=== PATIENT | male | born 1940 | race Caucasian/White ===

== ENCOUNTER 2023-05-17 05:58 | Day surgery (SDC) | payer MEDICARE ==
[~2023-05-17] VITALS: Ht 180.3 cm; Wt 97.3 kg
[2023-05-17] MEDS ORDERED: cefazolin 2gm/D5W 100mL 100 ML IV ONE (06:25)
[2023-05-17] MEDS ORDERED: vancomycin 1,500 MG in NS 300ml IV soln IV ONE (06:30)
[2023-05-18] MEDS ORDERED: cefazolin 2gm/D5W 100mL 100 ML IV ONE (05:30)
[2023-05-18] MEDS ORDERED: vancomycin 1,500 MG in NS 300ml IV soln IV ONE (05:30)
[2023-05-18] MEDS ORDERED: FLO0.4C PO (05:42)
[2023-05-18] MEDS ORDERED: AMLO2.5T4 PO (05:43)
[2023-05-18] MEDS ORDERED: FURO40TA4 PO (05:43)
[2023-05-18] MEDS ORDERED: METF-1203 PO (05:43)
[2023-05-18] MEDS ORDERED: HYDR25TA5 PO (05:43)
[2023-05-18] MEDS ORDERED: POTA8CAP20 PO (05:43)
[2023-05-18] MEDS ORDERED: LISI20TA28 PO (05:43)
[2023-05-18] MEDS ORDERED: APIX5TAB3 PO (05:43)
[2023-05-18] MEDS ORDERED: GLIP-192 PO (05:43)
== END 2023-05-17 06:40 | disposition home or self-care (01) ==
LOC: SSTAY O 05:58
PROVIDERS: ATTEND Internal Medicine Cardiovascular Disease
DX: I49.5 Sick sinus syndrome (principal); Z53.8 Procedure and treatment not carried out for other reasons; I42.0 Dilated cardiomyopathy; I48.0 Paroxysmal atrial fibrillation; I44.7 Left bundle-branch block, unspecified; I10 Essential (primary) hypertension; E11.9 Type 2 diabetes mellitus without complications; I71.40 Abdominal aortic aneurysm, without rupture, unspecified; Z79.01 Long term (current) use of anticoagulants; Z79.84 Long term (current) use of oral hypoglycemic drugs; Z79.899 Other long term (current) drug therapy; Z85.038 Personal history of other malignant neoplasm of large intestine; Z90.49 Acquired absence of other specified parts of digestive tract; Z98.890 Other specified postprocedural states; Z82.3 Family history of stroke; Z83.3 Family history of diabetes mellitus
CPT/HCPCS: 85610; J7030

== ENCOUNTER → 2023-05-18 | Day surgery (SDC) | payer MEDICARE ==
[~2023-05-18] VITALS: Ht 180.3 cm; Wt 96.5 kg
[2023-05-18] VITALS (7 sets, daily range): BP systolic 145–164; BP diastolic 72–88; PULSE 49–67; RESP 13–21; TEMP 97.8; O2SAT 92–98
[~2023-05-18] MED LIST: AMLO2.5T4 PO; APIX5TAB3 PO; FLO0.4C PO; FURO40TA4 PO; GLIP-192 PO; HYDR25TA5 PO; HYDROcodone/acetaminophen 10/325mg tab PO PRN; HYDROcodone/acetaminophen 5mg/325mg tablet PO PRN; LIDOCAINE 2%/EPI 1:100,000 inj. Multi-dose 20 ML VIAL ONE; LISI20TA28 PO; METF-1203 PO; POTA8CAP20 PO; VANCOMYCIN 1,500MG in NS 300 ML IVPB IV ONE; ceFAZolin 2,000MG in D5W 100mL IV ONE; fentaNYL/PF 50MCG/1 ML 2ML syringe ONE; iohexol 350 MG/ML 50ML vial IV ONE; midazolam 1 mg/ML 2ml injection ONE; normal saline 1000ml 1,000 ML IV PRN; normal saline 1000ml 1,000 ML IV SCH; vancomycin 1,000mg inj ONE
[2023-05-18 06:06] LABS: ALBUMIN 3.8 G/DL (3.4-5.0); ANION GAP 10 (8-16); BLOOD UREA NITROGEN 17 MG/DL (7-18); BUN/CREATININE RATIO 13.2 (10.0-20.0); CALCIUM 9.4 MG/DL (8.5-10.1); CHLORIDE 103 MMOL/L (99-107); CREATININE 1.29 MG/DL (0.60-1.10); GLUCOSE 187 MG/DL (70-104); MAGNESIUM 1.7 MG/DL (1.5-2.4); POTASSIUM 3.7 MMOL/L (3.5-5.1); SODIUM 144 MMOL/L (135-145); TOTAL CARBON DIOXIDE 31.1 MMOL/L (24-32); eCRCL 47 ML/MIN; eGFR 53 ML/MIN
[2023-05-18 06:09] LABS: APTT 27 SECONDS (22-32); PROTHROMBIN TIME 10.9 SECONDS (9.0-12.0)
[2023-05-18 06:24] LABS: BASOPHILS # (AUTO) 0.1 X10'3 (0-0.2); BASOPHILS % (AUTO) 0.9 % (0-1); EOSINOPHILS # (AUTO) 0.2 X10'3 (0-0.9); EOSINOPHILS % (AUTO) 2.8 % (0-6); HEMATOCRIT 42.4 % (42.0-52.0); HEMOGLOBIN 14.3 g/dl (14.0-17.9); LYMPHOCYTES # (AUTO) 1.9 X10'3 (1.1-4.8); LYMPHOCYTES % (AUTO) 24.7 % (21-51); MEAN CORPUSCULAR HEMOGLOBIN 32.4 PG (27.0-31.0); MEAN CORPUSCULAR HGB CONC 33.7 g/dL (33.0-36.5); MEAN CORPUSCULAR VOLUME 96.2 FL (78-98); MEAN PLATELET VOLUME 10.2 FL (7.4-10.4); MONOCYTES # (AUTO) 0.8 X10'3 (0-0.9); MONOCYTES % (AUTO) 10.6 % (2-12); NEUTROPHILS # (AUTO) 4.8 X10'3 (1.8-7.7); PLATELET COUNT 216 X10'3 (140-440); RED BLOOD COUNT 4.41 X10'6 (4.70-6.10); RED CELL DISTRIBUTION WIDTH 14.5 % (11.5-14.5); WHITE BLOOD COUNT 7.8 X10'3 (4.5-11.0)
== END | disposition home or self-care (01) ==
LOC: SSTAY O 05:07
PROVIDERS: ATTEND Internal Medicine Cardiovascular Disease
DX: I42.0 Dilated cardiomyopathy (principal); I11.0 Hypertensive heart disease with heart failure; I50.22 Chronic systolic (congestive) heart failure; I49.5 Sick sinus syndrome; I48.0 Paroxysmal atrial fibrillation; I44.7 Left bundle-branch block, unspecified; I71.40 Abdominal aortic aneurysm, without rupture, unspecified; E11.9 Type 2 diabetes mellitus without complications; Z79.84 Long term (current) use of oral hypoglycemic drugs; Z79.01 Long term (current) use of anticoagulants; Z79.899 Other long term (current) drug therapy; Z85.038 Personal history of other malignant neoplasm of large intestine; Z98.890 Other specified postprocedural states; Z90.49 Acquired absence of other specified parts of digestive tract; Z82.3 Family history of stroke; Z83.3 Family history of diabetes mellitus
CPT/HCPCS: 33225; 33249; 36415; 71045; 80048; 82948; 83735; 85025; 85610; 85730; 93005; 99152; 99153; C1769; C1882; C1895; C1898; C1900; J2250; J3010; J3370; J7030; J7040; Q9967; A4565

== ENCOUNTER 2023-10-04 06:04 | Day surgery (SDC) | payer MEDICARE ==
[~2023-10-04] VITALS: Ht 180.3 cm; Wt 91.8 kg
[2023-10-04] VITALS (8 sets, daily range): BP systolic 141–180; BP diastolic 73–85; PULSE 60–64; RESP 12–16; TEMP 97.6; O2SAT 96–100
[~2023-10-04 06:04] MED LIST changes: -HYDROcodone/acetaminophen 10/325mg tab PO PRN; -HYDROcodone/acetaminophen 5mg/325mg tablet PO PRN; -LIDOCAINE 2%/EPI 1:100,000 inj. Multi-dose 20 ML VIAL ONE; -VANCOMYCIN 1,500MG in NS 300 ML IVPB IV ONE; -ceFAZolin 2,000MG in D5W 100mL IV ONE; -fentaNYL/PF 50MCG/1 ML 2ML syringe ONE; -iohexol 350 MG/ML 50ML vial IV ONE; -midazolam 1 mg/ML 2ml injection ONE; -normal saline 1000ml 1,000 ML IV PRN; -normal saline 1000ml 1,000 ML IV SCH; -vancomycin 1,000mg inj ONE
[2023-10-04] MEDS ORDERED: CARV25TA2 PO (06:30)
[2023-10-04] MEDS ORDERED: AMI200T PO (06:30)
[2023-10-04 07:35] LABS: INR 1.1 INR; PROTHROMBIN TIME 11.3 SECONDS (9.0-12.0)
[2023-10-04 07:37] LABS: ALBUMIN 3.2 G/DL (3.4-5.0); ANION GAP 5 (8-16); BLOOD UREA NITROGEN 25 MG/DL (7-18); BUN/CREATININE RATIO 18.1 (10.0-20.0); CALCIUM 8.5 MG/DL (8.5-10.1); CHLORIDE 104 MMOL/L (99-107); CREATININE 1.38 MG/DL (0.60-1.10); GLUCOSE 171 MG/DL (70-104); MAGNESIUM 1.5 MG/DL (1.5-2.4); POTASSIUM 4.4 MMOL/L (3.5-5.1); SODIUM 141 MMOL/L (135-145); eCRCL 44 ML/MIN; eGFR 49 ML/MIN
[2023-10-04 07:40] LABS: BASOPHILS # (AUTO) 0.1 X10'3 (0-0.2); BASOPHILS % (AUTO) 1.2 % (0-1); EOSINOPHILS # (AUTO) 0.2 X10'3 (0-0.9); EOSINOPHILS % (AUTO) 3.9 % (0-6); HEMATOCRIT 36.5 % (42.0-52.0); HEMOGLOBIN 12.1 g/dl (14.0-17.9); LYMPHOCYTES # (AUTO) 1.4 X10'3 (1.1-4.8); LYMPHOCYTES % (AUTO) 22.5 % (21-51); MEAN CORPUSCULAR HEMOGLOBIN 30.8 PG (27.0-31.0); MEAN CORPUSCULAR HGB CONC 33.2 g/dL (33.0-36.5); MEAN CORPUSCULAR VOLUME 92.6 FL (78-98); MEAN PLATELET VOLUME 9.8 FL (7.4-10.4); MONOCYTES # (AUTO) 0.5 X10'3 (0-0.9); MONOCYTES % (AUTO) 8.4 % (2-12); NEUTROPHILS # (AUTO) 4.1 X10'3 (1.8-7.7); PLATELET COUNT 222 X10'3 (140-440); RED BLOOD COUNT 3.94 X10'6 (4.70-6.10); RED CELL DISTRIBUTION WIDTH 15.1 % (11.5-14.5); WHITE BLOOD COUNT 6.4 X10'3 (4.5-11.0)
[2023-10-04] MEDS: MIDAZolam 1mg/ml 10ml vial IV ONE (07:40)
[2023-10-04] MEDS: fentaNYL/PF 50MCG/1 ML 2ML syringe IV ONE (07:40)
[2023-10-04] MEDS: normal saline 1000ml 1,000 ML IV SCH (07:42)
== END 2023-10-04 08:42 | disposition home or self-care (01) ==
LOC: SSTAY O 06:04
PROVIDERS: ATTEND Internal Medicine Cardiovascular Disease
DX: I48.0 Paroxysmal atrial fibrillation (principal); I10 Essential (primary) hypertension; E11.9 Type 2 diabetes mellitus without complications; I42.0 Dilated cardiomyopathy; Z85.038 Personal history of other malignant neoplasm of large intestine; Z79.01 Long term (current) use of anticoagulants; Z79.84 Long term (current) use of oral hypoglycemic drugs; Z79.899 Other long term (current) drug therapy; Z90.49 Acquired absence of other specified parts of digestive tract; Z95.810 Presence of automatic (implantable) cardiac defibrillator; Z98.890 Other specified postprocedural states; Z83.3 Family history of diabetes mellitus
CPT/HCPCS: 36415; 80048; 82948; 83735; 85025; 85610; 92960; 93005; J2250; J3010; J7030; A4620